=== PATIENT | male | born 1985 | race Caucasian/White ===

== ENCOUNTER 2023-03-14 07:00 | Outpatient (RCR) | payer OTHER, SELFPAY | END 2023-04-23 09:35 | disposition home or self-care (01) | LOC: HO.PTWFD 07:00 | PROVIDERS: PCP Physician Assistant; Visit Provider Physical Medicine & Rehabilitation | DX: M51.36 Other intervertebral disc degeneration, lumbar region (principal) | CPT/HCPCS: 97014; 97110; 97140; 97150; 97161; 97535 ==